=== PATIENT | male | born 1945 | race Caucasian/White ===

== ENCOUNTER 2017-02-23 08:18 | Outpatient (CLI) | payer MEDICARE ==
[2017-02-23] MEDS ORDERED: NACL ONE (09:23)
--- NOTE | 2017-02-23 10:17 | Cat Scan Report ---
CTA CHEST: History: Dilated aortic root, aortic aneurysm. Technique: Helical CT following IV contrast. Sagittal and coronal reformatted images. Rotational MIP images. Findings: Contrast bolus is satisfactory. There is no evidence for aortic dissection. The central pulmonary arteries are unremarkable. No pulmonary embolus is detected. The ascending aorta measures 4.25 cm in the maximum diameter. This was obtained on coronal image 71. The aortic arch measures 3.3 cm. The descending thoracic aorta measures 3.2 cm. There is mild cardiomegaly. No pericardial effusion. The pulmonary vascularity is within normal limits. There are mild hypoventilatory changes in the lower lobes, otherwise, the lungs are clear. No interstitial or airspace disease. No pleural effusion or pneumothorax. The thyroid gland, tracheobronchial tree, esophagus and remaining mediastinal structures are unremarkable. No thoracic mass or adenopathy. Impression: The ascending aorta is dilated up to 4.25 cm as outlined above. Mild cardiomegaly.
== END 2017-02-23 08:19 | disposition home or self-care (01) ==
LOC: CT 08:18
PROVIDERS: ATTEND Internal Medicine
DX: I51.7 Cardiomegaly (principal); I77.810 Thoracic aortic ectasia
CPT/HCPCS: 36415; 71275; 82565; Q9967

== ENCOUNTER 2018-03-16 08:17 | Outpatient (CLI) | payer MEDICARE ==
[2018-03-16 08:54] LABS: Blood Urea Nitrogen 16 mg/dL (9-20)
--- NOTE | 2018-03-16 10:21 | Cat Scan Report ---
CTA chest: Dilated aortic root followup. Following IV administration of contrast transverse images were obtained through the chest. Coronal and sagittal reformatted images are included. Comparison made to prior exam on February 23, 2017. Slightly heterogeneous thyroid lobes. No definable mass. No significant hilar or mediastinal adenopathy. Central airways appear patent. No pulmonary nodules or infiltrates. Pleural surfaces are smooth. There is good opacification of the pulmonary vessels, cardiac chambers, and thoracic aorta. No filling defects in the pulmonary vessels nor cardiac chambers. The ascending aorta as measured on coronal images 71 and 72. The current measurement is 4.29 cm. This is comparable to the patient's prior examination. The aortic arch and descending aorta appear stable and within normal range. Impressions: Stable appearing mild ascending aortic dilatation.
== END 2018-03-16 08:18 | disposition home or self-care (01) ==
LOC: CT 08:17
PROVIDERS: ATTEND Internal Medicine
DX: I77.810 Thoracic aortic ectasia (principal); Z91.81 History of falling
CPT/HCPCS: 36415; 71275; 82565; 84520; Q9967

== ENCOUNTER 2019-04-30 08:18 | Outpatient (CLI) | payer MEDICARE ==
[2019-04-30 10:21] LABS: Chol/HDL Ratio 2.37 %
[2019-05-02 12:34] LABS: Vitamin D, 25-OH, D2 <4 ng/mL
== END 2019-04-30 08:19 | disposition home or self-care (01) ==
LOC: LAB 08:18
PROVIDERS: ATTEND Internal Medicine
DX: Z13.21 Encounter for screening for nutritional disorder (principal); E78.5 Hyperlipidemia, unspecified; E11.9 Type 2 diabetes mellitus without complications; E03.9 Hypothyroidism, unspecified
CPT/HCPCS: 36415; 80061; 82306; 82607; 83036; 84443

== ENCOUNTER 2019-08-05 14:22 | Outpatient (CLI) | payer MEDICARE ==
[2019-08-05 14:39] LABS: Bacteria,Urine 1+ /HPF (Negative); Bilirubin,Urine NEG (Negative); Blood,Urine SM (Negative); Color,Urine Yellow (Yellow); Mucus,Urine FEW /HPF; Protein,Urine <15 mg/dL mg/dL (Negative); Urobilinogen,Urine < 2.0 mg/dL (<2.0)
== END 2019-08-05 14:23 | disposition home or self-care (01) ==
LOC: LAB 14:22
PROVIDERS: ATTEND Internal Medicine
DX: N39.0 Urinary tract infection, site not specified (principal)
CPT/HCPCS: 81001; 87086

== ENCOUNTER 2019-09-16 08:47 | Outpatient (CLI) | payer MEDICARE | END 2019-09-16 08:48 | disposition home or self-care (01) | LOC: LAB 08:47 | PROVIDERS: ATTEND Internal Medicine | DX: E11.9 Type 2 diabetes mellitus without complications (principal); E03.9 Hypothyroidism, unspecified | CPT/HCPCS: 36415; 83036; 84443 ==

== ENCOUNTER 2020-01-06 05:13 | Observation (INO) | payer MEDICARE ==
[2020-01-02 10:46] LABS: Hematocrit 43.5 % (35.5-45.6); Hemoglobin 15.3 gm/dl (11.8-15.2); Mean Corpuscular HGB Conc 35 % (32-34); Mean Corpuscular Volume 91 fl (84-94); Platelet Count 176 K/mm3 (140-440); Red Blood Count 4.78 M/mm3 (3.65-5.03)
--- NOTE | 2020-01-02 11:08 | Anesthesia Consultation ---
Anesthesia Consult and Med Hx Date of service: 01/06/20 - Airway Anesthetic Teeth Evaluation: Dentures (full upper and lower) ROM Head & Neck: Adequate Mental/Hyoid Distance: Adequate Mallampati Class: Class III Intubation Access Assessment: Possibly Difficult - Pulmonary Exam CTA: Yes - Cardiac Exam Cardiac Exam: RRR - Pre-Operative Health Status ASA Pre-Surgery Classification: ASA3 Proposed Anesthetic Plan: General - Pulmonary Hx Smoking: Yes (quit 40yrs ago) Hx Respiratory Symptoms: No Hx Sleep Apnea: Yes (compliant with CPAP) - Cardiovascular System Hx Hypertension: Yes Hx Heart Attack/AMI: No Hx Percutaneous Transluminal Coronary Angioplasty (PTCA): No Hx Valvular Heart Disease: No (no significant valvular lesions on TTE 10/2018) - Central Nervous System Hx Seizures: No 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 Recent diagnosis of Parkinson's disease and mild cognitive impairment. Most recent cardiology note on chart.
[2020-01-02 11:13] LABS: Alanine Aminotransferase 38 units/L (7-56); Albumin 4.4 g/dL (3.9-5); BUN/Creatinine Ratio 22; Blood Urea Nitrogen 20 mg/dL (9-20); Calcium 9.8 mg/dL (8.4-10.2); Hemolysis Index 33
[~2020-01-06 05:13] MED LIST: ceFAZolin/Water 2 GM/20 ML 2 GM/20 ML SYRINGE IV NR
[2020-01-06] MEDS ORDERED: SODIUM CHLORIDE 0.9% 1000 ML 1,000 ML IV SCH ×2 (06:00→10:00)
--- NOTE | 2020-01-06 07:06 | Anesthesia Day of Surgery ---
Anesthesia Day of Surgery - Day of Surgery Patient Examined: Yes Patient H&P Reviewed: Yes (Sugars 300, high limit will monitor post op) Patient is NPO: Yes Beta Blockers: Yes
[2020-01-06] MEDS ORDERED: fentaNYL 100 MCG/2 ML INJ IV PRN (07:18)
[2020-01-06] MEDS ORDERED: PHENYLEPHRINE/NS 1,000 MCG/10 ML SYRINGE (OR USE) IV ONE (07:48)
[2020-01-06] MEDS ORDERED: ONDANSETRON 4 MG/2 ML INJ ONE (07:48)
[2020-01-06] MEDS ORDERED: GLYCOPYRROLATE 0.4 MG/2 ML INJ ONE (07:48)
[2020-01-06] MEDS ORDERED: LIDOCAINE MPF (2%) 20 MG/1 ML VIAL 5 ML ONE (07:48)
[2020-01-06] MEDS ORDERED: propofoL 200 MG/20 ML VIAL IV ONE (07:49)
[2020-01-06] MEDS ORDERED: fentaNYL 100 MCG/2 ML INJ ONE (07:49)
[2020-01-06] MEDS ORDERED: SUCCINYLCHOLINE CHLORIDE 200 MG/10 ML INJ MDV ONE (07:52)
[2020-01-06] MEDS ORDERED: SODIUM CHLORIDE 0.9% IRRIG SOLN 2000 ML IR ONE (08:36)
--- NOTE | 2020-01-06 08:55 | Short Stay Summary ---
Short Stay Documentation Date of service: 01/06/20 Narrative H&P: 74 yr old with BPH NEEDS TURP - History Past Medical History: diabetes, hypertension - Allergies and Medications Current Medications: Allergies No Known Allergies Allergy (Verified 12/30/19 11:57) Home Medications Medication Instructions Recorded Confirmed Last Taken Type Atorvastatin Calcium 20 mg PO HS 10/14/18 12/30/19 10/12/18 22:00 History Furosemide 20 mg PO DAILY 10/14/18 01/02/20 10/13/18 10:00 History Metformin HCl 500 mg PO BID 10/14/18 12/30/19 10/13/18 10:00 History Metoprolol [Lopressor TAB] 25 mg PO BID 10/14/18 12/30/19 10/13/18 10:00 History 25 mg Tamsulosin [Flomax] 0.8 mg PO DAILY 10/14/18 12/30/19 10/13/18 10:00 History Aspirin [Adult Aspirin] 81 mg PO DAILY 12/30/19 12/30/19 Unknown History Carbidopa/Levodopa [Carbidopa-Levo 1 each PO TID 12/30/19 12/30/19 Unknown History 25-250 mg Odt] Duloxetine HCl [Cymbalta] 60 mg PO QHS 12/30/19 01/02/20 Unknown History Finasteride [Proscar] 5 mg PO DAILY 12/30/19 12/30/19 Unknown History hydroCHLOROthiazide [HCTZ] 25 mg PO QDAY 12/30/19 12/30/19 Unknown History Active Medications Fentanyl (Sublimaze) 50 mcg IV Q5MIN PRN PRN Reason: Pain , Severe (7-10) Stop: 01/06/20 23:00 Cefazolin Sodium (Ancef/Sterile Water 2 Gm/20 Ml) 2 gm in 20 mls @ 80 mls/hr IV PREOP NR; Protocol Stop: 01/06/20 18:00 Sodium Chloride (Nacl 0.9% 1000 Ml) 1,000 mls @ 42 mls/hr IV DIRECT CHETAN Stop: 01/06/20 23:59 - Physical exam General appearance: no acute distress, well-nourished Integumentary: no rash, no growths HEENT: Atraumatic, PERRLA Lungs: Clear to auscultation, Normal air movement Heart: Regular rate, No murmurs Gastrointestinal: normal Male Genitourinary: normal Rectal Exam: normal rectal tone - Brief post op/procedure progress note Date of procedure: 01/06/20 Pre-op diagnosis: BPH Post-op diagnosis: same Procedure: cysto, rpg, TURP Anesthesia: GETA Surgeon: TAWNYA CRANE Estimated blood loss: minimal Pathology: list (prostate chips) Specimen disposition: to lab Condition: stable - Hospital course Hospital course: bactrim,ultram, norco on chart no issues, mild nausea byers pink tinged ok for dc home - Disposition Condition at discharge: Stable Short Stay Discharge Plan Follow up with: SHUN PÉREZ MD [Primary Care Provider] - 7 Days
[2020-01-06] MEDS ORDERED: NALOXONE 0.4 MG/1 ML INJ IV PRN (09:02)
--- NOTE | 2020-01-06 09:18 | Fluoroscopy Report ---
INTRAOPERATIVE FLUOROSCOPY: RETROGRADE UROGRAPHY INDICATION: Enlarged prostate gland. Guidance for retrograde urography performed with TURP. TECHNIQUE: Intraoperative spot images were obtained during the procedure. FINDINGS: There is unremarkable opacification of the renal collecting systems and ureters. Please see the opera tive report for further details. Fluoroscopy Time: 11 seconds. Fluoroscopy Images: 3. Signer Name: Stevie Josue MD Signed: 01/06/2020 9:13 AM Workstation Name: [id number]
[2020-01-06] MEDS ORDERED: DEXTROSE 50% IN WATER (25GM) 50 ML SYRINGE IV PRN ×3 (09:29→11:37)
--- NOTE | 2020-01-06 09:39 | Post Anesthesia Evaluation ---
- Post Anesthesia Evaluation Patient Participated: Yes Airway Patent: Yes Stable Respiratory Function: Yes Nausea/Vomiting: Yes Temp > 96.8F: Yes Pain Manageable: Yes Adequeate Hydration: Yes Anesthesia Complications: No
[2020-01-06] MEDS ORDERED: ONDANSETRON 4 MG/2 ML INJ IV PRN (10:00)
[2020-01-06] MEDS ORDERED: MORPHINE 2 MG/1 ML INJ IV PRN (10:00)
[2020-01-06] MEDS ORDERED: SODIUM CHLORIDE 0.9% 1000 ML 1,000 ML ONE (10:07)
--- NOTE | 2020-01-06 11:34 | Consultation ---
History of Present Illness - Reason for Consult Consult date: 01/06/20 Requesting physician: TAWNYA CRANE - History of Present Illness 74-year-old male with past medical history of diabetes mellitus type 2, hypertension and BPH who presents for elective surgery this morning--TURP. Patient seen in PACU/recovery and appears to be somewhat somnolent. Patient with no history of chest pain or shortness of breath. No headache or visual disturbances. Past History Past Medical History: diabetes, hypertension, hyperlipidemia, other (BPH) Past Surgical History: No surgical history Social history: no significant social history Family history: no significant family history Medications and Allergies Allergies Allergy/AdvReac Type Severity Reaction Status Date / Time No Known Allergies Allergy Verified 12/30/19 11:57 Home Medications Medication Instructions Recorded Confirmed Last Taken Type Atorvastatin Calcium 20 mg PO HS 10/14/18 01/06/20 01/05/20 19:00 History Furosemide 20 mg PO DAILY 10/14/18 01/06/20 01/05/20 09:00 History Metformin HCl 500 mg PO BID 10/14/18 01/06/20 01/05/20 17:00 History Metoprolol [Lopressor TAB] 25 mg PO BID 10/14/18 01/06/20 01/05/20 19:00 History Tamsulosin [Flomax] 0.8 mg PO DAILY 10/14/18 01/06/20 01/05/20 09:00 History Aspirin [Adult Aspirin] 81 mg PO DAILY 12/30/19 01/06/20 12/30/19 09:00 History Carbidopa/Levodopa [Carbidopa-Levo 1 each PO TID 12/30/19 01/06/20 01/05/20 19:00 History 25-250 mg Odt] Duloxetine HCl [Cymbalta] 60 mg PO QHS 12/30/19 01/06/20 01/05/20 19:00 History Finasteride [Proscar] 5 mg PO DAILY 12/30/19 01/06/20 01/05/20 09:00 History hydroCHLOROthiazide [HCTZ] 25 mg PO QDAY 12/30/19 01/06/20 01/05/20 09:00 History Active Meds: Active Medications Acetaminophen/Hydrocodone Bitart ([place] 5/325) 2 each PO Q4H PRN PRN Reason: Pain, Moderate (4-6) Atorvastatin Calcium (Lipitor) 20 mg PO QHS [facility] Carbidopa/Levodopa (Sinemet) 1 each PO TID [facility] Dextrose (D50w (25gm) Syringe) 50 ml IV Q30MIN PRN; Protocol PRN Reason: Hypoglycemia Duloxetine HCl (Cymbalta) 60 mg PO QHS [facility] Fentanyl (Sublimaze) 50 mcg IV Q5MIN PRN PRN Reason: Pain , Severe (7-10) Stop: 01/06/20 23:00 Finasteride (Proscar) 5 mg PO DAILY [facility] Hydrochlorothiazide (Hctz) 25 mg PO QDAY CHETAN Cefazolin Sodium (Ancef/Sterile Water 2 Gm/20 Ml) 2 gm in 20 mls @ 80 mls/hr IV PREOP NR; Protocol Stop: 01/06/20 18:00 Cefazolin Sodium (Ancef/Ns 1 Gm/50 Ml) 1 gm in 50 mls @ 100 mls/hr IV Q8H CHETAN; Protocol Stop: 01/07/20 00:29 Sodium Chloride (Nacl 0.9% 1000 Ml) 1,000 mls @ 100 mls/hr IV DIRECT CHETAN Insulin Human Regular (Humulin R) 0 units SUB-Q Q6HR [facility]; Protocol Metformin HCl (Glucophage) 500 mg PO BIDDIAB [facility] Metoprolol Tartrate (Metoprolol) 25 mg PO BID CHETAN Morphine Sulfate (Morphine) 2 mg IV Q4H PRN PRN Reason: Pain, Moderate (4-6) Naloxone HCl (Naloxone) 0.1 mg IV Q2MIN PRN PRN Reason: Res Rate </= 8 or 02 SAT < 92% Ondansetron HCl (Zofran) 4 mg IV Q8H PRN PRN Reason: Nausea And Vomiting Sodium Chloride (Nacl 0.9%) 2,000 ml IR DIRECT CHETAN Tamsulosin HCl (Flomax) 0.8 mg PO DAILY [facility] Review of Systems All systems: negative Exam - Constitutional Vitals: Temp Pulse Resp BP Pulse Ox 98.3 F 74 18 127/71 96 01/06/20 10:00 01/06/20 10:30 01/06/20 10:30 01/06/20 10:30 01/06/20 10:30 General appearance: Present: no acute distress, well-nourished - EENT Eyes: Present: PERRL ENT: hearing intact, clear oral mucosa - Neck Neck: Present: supple, normal ROM - Respiratory Respiratory effort: normal Respiratory: bilateral: CTA - Cardiovascular Heart Sounds: Present: S1 & S2. Absent: rub, click - Extremities Extremities: pulses symmetrical, No edema Peripheral Pulses: within normal limits - Abdominal General gastrointestinal: Present: soft, non-tender, non-distended, normal bowel sounds Male genitourinary: Present: normal - Integumentary Integumentary: Present: clear, warm, dry - Musculoskeletal Musculoskeletal: gait normal, strength equal bilaterally - Psychiatric Psychiatric: appropriate mood/affect, intact judgment & insight - Neurologic Neurologic: CNII-XII intact, moves all extremities Results - Labs CBC & Chem 7: 01/02/20 09:55 01/02/20 09:55 Labs: Abnormal lab results 01/06/20 01/06/20 Range/Units 07:00 09:29 POC Glucose 300 H 271 H (70-105) Assessment and Plan Diabetes mellitus type 2. Accu-Cheks and sliding scale insulin. Hypertension. Resume home antihypertensive medications. Hyperlipidemia. Continue antilipids BPH. s/p TURP. Continue per urology.
--- NOTE | 2020-01-06 11:34 | Operative Report ---
PREOPERATIVE DIAGNOSIS: Benign prostatic hypertrophy. POSTOPERATIVE DIAGNOSIS: Benign prostatic hypertrophy. PROCEDURE: Cystoscopy, bilateral retrograde pyelograms, transurethral resection of the prostate. SURGEON: Flakito Tomlin MD ANESTHESIA: General. ESTIMATED BLOOD LOSS: Minimal. FLUIDS: Crystalloid. COMPLICATIONS: No complications. INDICATIONS: This patient is a 74-year-old gentleman known to our service for several years with worsening prostate obstructive symptoms. Discussed options. He agreed to proceed with surgical intervention. DESCRIPTION OF PROCEDURE: The patient was taken to the operative suite, placed in a supine position. After adequate general anesthesia, he was placed in a dorsal lithotomy position, prepped and draped in a sterile fashion. Pancystourethroscopy was performed with a 22-Finnish Storz cystoscope, no urethral abnormalities. His prostate displayed moderate trilobar obstruction. In his bladder no tumors or stones were noted. Positive diffuse edema. Bilateral retrograde pyelograms were obtained with an 8-Finnish Barber catheter and 8 mL of contrast. No filling defects or obstruction. No filling defects or obstruction. Next, using a 24-Finnish resectoscope and loop with the cutting and coag on 160 and 60, transurethral resection of the prostate was performed in a systematic fashion, taken down the median lobe and the right and left lateral lobes respectively. Chips were evacuated out with the [employer] evacuator. A 24-Finnish Sinha with a stylette was placed, 50 mL in the balloon, irrigated clear. Rectal exam was benign. He was extubated and taken to recovery room with a Trevino's drip. He will be observed overnight. JOB# [id number] [facility]
[2020-01-06] MEDS ORDERED: INSULIN REGULAR, HUMAN 100 UNITS/1 ML SUB-Q SCH ×2 (12:00)
[2020-01-06] MEDS ORDERED: LEVODOPA PO SCH (14:00)
[2020-01-06] MEDS ORDERED: CARBIDOPA PO SCH (14:00)
[2020-01-06] MEDS: INSULIN REGULAR, HUMAN 100 UNITS/1 ML SUB-Q SCH ×3 (15:01→22:03)
[2020-01-06] MEDS: SODIUM CHLORIDE 0.9% IRRIG SOLN 2000 ML IR SCH ×7 (15:02→21:30)
[2020-01-06] MEDS ORDERED: NITROGLYCERIN 0.4 MG TAB SUBL SL PRN (16:18)
[2020-01-06] MEDS: METOPROLOL TARTRATE 25 MG TAB PO SCH ×2 (16:46→21:29)
[2020-01-06] MEDS: CARBIDOPA/LEVODOPA 25-250 TAB PO SCH ×2 (16:46→22:03)
[2020-01-06] MEDS: hydroCHLOROthiazide 25 MG TAB PO SCH (16:47)
[2020-01-06] MEDS: FINASTERIDE 5 MG TAB PO SCH (16:47)
[2020-01-06] MEDS: metFORMIN 500 MG TAB PO SCH ×2 (17:47→17:51)
[2020-01-06] MEDS: ASPIRIN 81 MG TAB CHEW PO SCH (17:58)
[2020-01-06] MEDS: ceFAZolin/NS 1 GM/50 ML 1 GM/50 ML BAG IV SCH (17:59)
[2020-01-06] MEDS: HYDROcodone/ACETAMINOPHEN 5-325 MG TAB PO PRN (21:30)
[2020-01-06] MEDS ORDERED: ATORVASTATIN CALCIUM 20 MG PO SCH (22:00)
[2020-01-06] MEDS ORDERED: DULoxetine 30 MG CAP PO SCH (22:00)
[2020-01-06] MEDS ORDERED: DULoxetine 20 MG CAP PO SCH (22:00)
[2020-01-06] MEDS: TAMSULOSIN 0.4 MG CAP PO SCH (22:04)
[2020-01-07] MEDS: ceFAZolin/NS 1 GM/50 ML 1 GM/50 ML BAG IV SCH (00:32)
[2020-01-07] MEDS: SODIUM CHLORIDE 0.9% IRRIG SOLN 2000 ML IR SCH ×3 (00:39→05:24)
[2020-01-07] MEDS: HYDROcodone/ACETAMINOPHEN 5-325 MG TAB PO PRN (05:26)
[2020-01-07 05:55] LABS: Basophils % (Auto) 0.4 % (0.0-1.8); Eosinophils # (Auto) 0.2 K/mm3 (0.0-0.4); Eosinophils % (Auto) 2.1 % (0.0-4.3); Hematocrit 41.5 % (35.5-45.6); Hemoglobin 14.1 gm/dl (11.8-15.2); Lymphocytes # (Auto) 2.1 K/mm3 (1.2-5.4); Lymphocytes % (Auto) 20.1 % (13.4-35.0); Mean Corpuscular HGB Conc 34 % (32-34); Mean Corpuscular Volume 92 fl (84-94); Monocytes # (Auto) 1.2 K/mm3 (0.0-0.8); Monocytes % (Auto) 11.7 % (0.0-7.3); Platelet Count 166 K/mm3 (140-440)
[2020-01-07 06:12] LABS: BUN/Creatinine Ratio 15; Blood Urea Nitrogen 15 mg/dL (9-20); Calcium 9.2 mg/dL (8.4-10.2); Hemolysis Index 12
[2020-01-07] MEDS: INSULIN REGULAR, HUMAN 100 UNITS/1 ML SUB-Q SCH ×2 (08:37→12:00)
[2020-01-07] MEDS: metFORMIN 500 MG TAB PO SCH (08:38)
[2020-01-07] MEDS: CARBIDOPA/LEVODOPA 25-250 TAB PO SCH (08:38)
[2020-01-07] MEDS ORDERED: POTASSIUM CHLORIDE ER 20 MEQ TAB PO SCH (09:00)
--- NOTE | 2020-01-07 09:36 | Consultation ---
<MADELAINE FARFAN - Last Filed: 01/07/20 10:01> History of Present Illness Consult date: 01/07/20 Requesting physician: SINAI YOUNG Consult reason: chest pain History of present illness: The pt is a 74-year-old male with past medical history of diabetes mellitus type 2, hypertension, HLP, SARAH, obesity and BPH. He is followed in our office by Dr. Leeroy Chadwick. He presented presented yesterday for elective TURP. He underwent the procedure and was admitted. Cardiology has been consulted for chest pain. Pt denies any occurrence of chest pain. He is noted to be nauseous and is vomiting on evaluation. He denies any SOB, palpitations, diaphoresis, dizziness or syncope. Lexiscan MPI stress test done 05/2019 was negative. Echo done 10/2018 showed EF 55-60%, mild LVH, impaired relaxation, mild dilatation of ascending aorta and descending thoracic aorta. Past History Past Medical History: diabetes, hypertension, hyperlipidemia, other (BPH) Past Surgical History: No surgical history Social history: no significant social history Family history: no significant family history Medications and Allergies Allergies Allergy/AdvReac Type Severity Reaction Status Date / Time No Known Allergies Allergy Verified 12/30/19 11:57 Home Medications Medication Instructions Recorded Confirmed Last Taken Type Atorvastatin Calcium 20 mg PO HS 10/14/18 01/06/20 01/05/20 19:00 History Furosemide 20 mg PO DAILY 10/14/18 01/06/20 01/05/20 09:00 History Metformin HCl 500 mg PO BID 10/14/18 01/06/20 01/05/20 17:00 History Metoprolol [Lopressor TAB] 25 mg PO BID 10/14/18 01/06/20 01/05/20 19:00 History Tamsulosin [Flomax] 0.8 mg PO DAILY 10/14/18 01/06/20 01/05/20 09:00 History Aspirin [Adult Aspirin] 81 mg PO DAILY 12/30/19 01/06/20 12/30/19 09:00 History Carbidopa/Levodopa [Carbidopa-Levo 1 each PO TID 12/30/19 01/06/20 01/05/20 19:00 History 25-250 mg Odt] Duloxetine HCl [Cymbalta] 60 mg PO QHS 12/30/19 01/06/20 01/05/20 19:00 History Finasteride [Proscar] 5 mg PO DAILY 12/30/19 01/06/20 01/05/20 09:00 History hydroCHLOROthiazide [HCTZ] 25 mg PO QDAY 12/30/19 01/06/20 01/05/20 09:00 History Active Meds: Active Medications Acetaminophen/Hydrocodone Bitart ([place] 5/325) 2 each PO Q4H PRN PRN Reason: Pain, Moderate (4-6) Last Admin: 01/07/20 05:26 Dose: 2 each Documented by: Aspirin (Baby Aspirin) 81 mg PO QDAY [facility] Last Admin: 01/06/20 17:58 Dose: 81 mg Documented by: Atorvastatin Calcium (Lipitor) 20 mg PO QHS [facility] Last Admin: 01/06/20 21:30 Dose: 20 mg Documented by: Carbidopa/Levodopa (Sinemet) 1 each PO TID [facility] Last Admin: 01/07/20 08:38 Dose: 1 each Documented by: Dextrose (D50w (25gm) Syringe) 50 ml IV Q30MIN PRN; Protocol PRN Reason: Hypoglycemia Duloxetine HCl (Cymbalta) 60 mg PO QHS [facility] Last Admin: 01/06/20 21:30 Dose: 60 mg Documented by: Finasteride (Proscar) 5 mg PO DAILY [facility] Last Admin: 01/06/20 16:47 Dose: 5 mg Documented by: Hydrochlorothiazide (Hctz) 25 mg PO QDAY [facility] Last Admin: 01/06/20 16:47 Dose: 25 mg Documented by: Sodium Chloride (Nacl 0.9% 1000 Ml) 1,000 mls @ 100 mls/hr IV DIRECT [facility] Last Admin: 01/07/20 05:26 Dose: 100 mls/hr Documented by: Insulin Human Regular (Humulin R) 0 units SUB-Q ACHS [facility]; Protocol Last Admin: 01/07/20 08:37 Dose: 4 units Documented by: Metformin HCl (Glucophage) 500 mg PO BIDDIAB [facility] Last Admin: 01/07/20 08:38 Dose: 500 mg Documented by: Metoprolol Tartrate (Metoprolol) 25 mg PO BID [facility] Last Admin: 01/06/20 21:29 Dose: 25 mg Documented by: Morphine Sulfate (Morphine) 2 mg IV Q4H PRN PRN Reason: Pain , Severe (7-10) Last Admin: 01/06/20 16:15 Dose: 2 mg Documented by: Naloxone HCl (Naloxone) 0.1 mg IV Q2MIN PRN PRN Reason: Res Rate </= 8 or 02 SAT < 92% Nitroglycerin (Nitrostat) 0.4 mg SL .Q5MIN PRN PRN Reason: Chest Pain Ondansetron HCl (Zofran) 4 mg IV Q8H PRN PRN Reason: Nausea And Vomiting Potassium Chloride (K-Dur) 40 meq PO Q4H [facility] Stop: 01/07/20 13:01 Last Admin: 01/07/20 08:38 Dose: 40 meq Documented by: Sodium Chloride (Nacl 0.9%) 2,000 ml IR DIRECT [facility] Last Admin: 01/07/20 05:24 Dose: 2,000 ml Documented by: Tamsulosin HCl (Flomax) 0.8 mg PO DAILY [facility] Last Admin: 01/06/20 22:04 Dose: Not Given Documented by: Review of Systems Constitutional: no weight loss, no weight gain, no fever, no chills, no sweats Ears, nose, mouth and throat: no ear pain, no nose pain, no sinus pressure, no sinus pain Cardiovascular: no chest pain, no orthopnea, no palpitations, no rapid/irregular heart beat, no edema, no syncope, no lightheadedness, no shortness of breath, no dyspnea on exertion, no leg edema Respiratory: no cough, no shortness of breath, no dyspnea on exertion, no congestion, no wheezing, no pain on inspiration Gastrointestinal: nausea, vomiting, no abdominal pain, no diarrhea, no constipation, no change in bowel habits Genitourinary Male: no flank pain, no discharge Musculoskeletal: no neck stiffness, no neck pain, no shooting arm pain, no arm numbness/tingling, no low back pain, no shooting leg pain Integumentary: no rash, no pruritis, no redness, no sores, no wounds Neurological: no head injury, no paralysis, no weakness, no parathesias, no numbness, no tingling, no seizures, no syncope Psychiatric: no anxiety Endocrine: no cold intolerance, no heat intolerance Hematologic/Lymphatic: no easy bruising, no easy bleeding Allergic/Immunologic: no urticaria Physical Examination Vital Signs Temp Pulse Resp BP Pulse Ox 97.1 F L 80 20 109/76 97 01/02/20 10:44 01/02/20 10:44 01/02/20 10:44 01/02/20 10:44 01/02/20 10:44 General appearance: no acute distress HEENT: Positive: PERRL, Normocephaly, Mucus Membranes Moist Neck: Positive: neck supple, trachea midline Cardiac: Positive: Reg Rate and Rhythm, S1/S2 Lungs: Positive: Decreased Breath Sounds Neuro: Positive: Grossly Intact Abdomen: Negative: Tender Skin: Negative: Rash Musculoskeletal: No Pain Extremities: Absent: edema Results 01/07/20 04:42 01/07/20 04:42 CBC 01/07/20 Range/Units 04:42 WBC 10.3 (4.5-11.0) K/mm3 RBC 4.50 (3.65-5.03) M/mm3 Hgb 14.1 (11.8-15.2) gm/dl Hct 41.5 (35.5-45.6) % Plt Count 166 (140-440) K/mm3 Lymph # 2.1 (1.2-5.4) K/mm3 [place] # 1.2 H (0.0-0.8) K/mm3 Eos # 0.2 (0.0-0.4) K/mm3 Baso # 0.0 (0.0-0.1) K/mm3 Comprehensive Metabolic Panel 01/07/20 Range/Units 04:42 Sodium 137 (137-145) mmol/L Potassium 3.1 L (3.6-5.0) mmol/L Chloride 96.5 L (98-107) mmol/L Carbon Dioxide 27 (22-30) mmol/L BUN 15 (9-20) mg/dL Creatinine 1.0 (0.8-1.5) mg/dL Glucose 267 H (75-100) mg/dL Calcium 9.2 (8.4-10.2) mg/dL - Imaging and Cardiology Echo: report reviewed (10/2018 showed EF 55-60%, mild LVH, impaired relaxation, mild dilatation of ascending aorta and descending thoracic aorta. ) EKG: report reviewed, image reviewed EKG interpretations - Telemetry EKG Rhythm: Sinus Rhythm - EKG Sinus rhythms and dysrhythmias: sinus rhythm AV and intraventricular conduction: intraventricular conducti Assessment and Plan Pt denies any occurrence of chest pain. Lexiscan MPI stress test done 05/2019 was negative. Echo done 10/2018 showed EF 55-60%, mild LVH, impaired relaxation, mild dilatation of ascending aorta and descending thoracic aorta. Gian negative for AMI x 1 set. Obtain second set of Gian and if negative, pt may discharge from cardiology standpoint. Further eval of n/v per primary team. Replete K+. Recommend pt follow up in our office with Dr. Leeroy Chadwick within 2 weeks of discharge ([phone]). The patient has been seen in conjunction with Dr. Wilson who agrees with the assessment and plan of care. - Patient Problems (1) S/P TURP Current Visit: Yes Status: Acute (2) Nausea and vomiting Current Visit: Yes Status: Acute (3) Hypokalemia Current Visit: Yes Status: Acute (4) HTN (hypertension) Current Visit: Yes Status: Chronic (5) Diabetes Current Visit: Yes Status: Chronic (6) Hyperlipidemia Current Visit: Yes Status: Chronic (7) Sleep apnea Current Visit: Yes Status: Chronic (8) Obesity Current Visit: Yes Status: Chronic <ANCELMO WILSON R - Last Filed: 01/07/20 11:30> Medications and Allergies Active Meds: Active Medications Acetaminophen/Hydrocodone Bitart ([place] 5/325) 2 each PO Q4H PRN PRN Reason: Pain, Moderate (4-6) Last Admin: 01/07/20 05:26 Dose: 2 each Documented by: Aspirin (Baby Aspirin) 81 mg PO QDAY [facility] Last Admin: 01/07/20 10:10 Dose: 81 mg Documented by: Atorvastatin Calcium (Lipitor) 20 mg PO QHS [facility] Last Admin: 01/06/20 21:30 Dose: 20 mg Documented by: Carbidopa/Levodopa (Sinemet) 1 each PO TID [facility] Last Admin: 01/07/20 08:38 Dose: 1 each Documented by: Dextrose (D50w (25gm) Syringe) 50 ml IV Q30MIN PRN; Protocol PRN Reason: Hypoglycemia Duloxetine HCl (Cymbalta) 60 mg PO QHS [facility] Last Admin: 01/06/20 21:30 Dose: 60 mg Documented by: Finasteride (Proscar) 5 mg PO DAILY [facility] Last Admin: 01/07/20 10:09 Dose: 5 mg Documented by: Hydrochlorothiazide (Hctz) 25 mg PO QDAY [facility] Last Admin: 01/07/20 10:10 Dose: 25 mg Documented by: Sodium Chloride (Nacl 0.9% 1000 Ml) 1,000 mls @ 100 mls/hr IV DIRECT [facility] Last Admin: 01/07/20 05:26 Dose: 100 mls/hr Documented by: Insulin Human Regular (Humulin R) 0 units SUB-Q ACHS [facility]; Protocol Last Admin: 01/07/20 08:37 Dose: 4 units Documented by: Metformin HCl (Glucophage) 500 mg PO BIDDIAB [facility] Last Admin: 01/07/20 08:38 Dose: 500 mg Documented by: Metoprolol Tartrate (Metoprolol) 25 mg PO BID [facility] Last Admin: 01/07/20 10:10 Dose: 25 mg Documented by: Morphine Sulfate (Morphine) 2 mg IV Q4H PRN PRN Reason: Pain , Severe (7-10) Last Admin: 01/06/20 16:15 Dose: 2 mg Documented by: Naloxone HCl (Naloxone) 0.1 mg IV Q2MIN PRN PRN Reason: Res Rate </= 8 or 02 SAT < 92% Nitroglycerin (Nitrostat) 0.4 mg SL .Q5MIN PRN PRN Reason: Chest Pain Ondansetron HCl (Zofran) 4 mg IV Q8H PRN PRN Reason: Nausea And Vomiting Potassium Chloride (K-Dur) 40 meq PO Q4H [facility] Stop: 01/07/20 13:01 Last Admin: 01/07/20 08:38 Dose: 40 meq Documented by: Sodium Chloride (Nacl 0.9%) 2,000 ml IR DIRECT [facility] Last Admin: 01/07/20 05:24 Dose: 2,000 ml Documented by: Tamsulosin HCl (Flomax) 0.8 mg PO DAILY [facility] Last Admin: 01/07/20 10:10 Dose: 0.8 mg Documented by: Physical Examination Vital Signs Temp Pulse Resp BP Pulse Ox 97.1 F L 80 20 109/76 97 01/02/20 10:44 01/02/20 10:44 01/02/20 10:44 01/02/20 10:44 01/02/20 10:44 Results 01/07/20 04:42 01/07/20 04:42 CBC 01/07/20 Range/Units 04:42 WBC 10.3 (4.5-11.0) K/mm3 RBC 4.50 (3.65-5.03) M/mm3 Hgb 14.1 (11.8-15.2) gm/dl Hct 41.5 (35.5-45.6) % Plt Count 166 (140-440) K/mm3 Lymph # 2.1 (1.2-5.4) K/mm3 [place] # 1.2 H (0.0-0.8) K/mm3 Eos # 0.2 (0.0-0.4) K/mm3 Baso # 0.0 (0.0-0.1) K/mm3 Comprehensive Metabolic Panel 01/07/20 Range/Units 04:42 Sodium 137 (137-145) mmol/L Potassium 3.1 L (3.6-5.0) mmol/L Chloride 96.5 L (98-107) mmol/L Carbon Dioxide 27 (22-30) mmol/L BUN 15 (9-20) mg/dL Creatinine 1.0 (0.8-1.5) mg/dL Glucose 267 H (75-100) mg/dL Calcium 9.2 (8.4-10.2) mg/dL Assessment and Plan chest pain secondary to nausea and vomiting, gi. treatment as per primary team
[2020-01-07] MEDS: FINASTERIDE 5 MG TAB PO SCH (10:09)
[2020-01-07] MEDS: hydroCHLOROthiazide 25 MG TAB PO SCH (10:10)
[2020-01-07] MEDS: ASPIRIN 81 MG TAB CHEW PO SCH (10:10)
[2020-01-07] MEDS: METOPROLOL TARTRATE 25 MG TAB PO SCH (10:10)
[2020-01-07] MEDS: TAMSULOSIN 0.4 MG CAP PO SCH (10:10)
--- NOTE | 2020-01-07 11:15 | Progress Note ---
Assessment and Plan Assessment and plan: Diabetes mellitus type 2. Accu-Cheks and sliding scale insulin. Hypertension. Resume home antihypertensive medications. Hyperlipidemia. Continue antilipids BPH. s/p TURP. Continue per urology. 01/07/20 Patient with BPH, diabetes, hypertension. He had TURP done yesterday by Dr. Tomlin, Urology. Currently only mild pain from surgical site. History Interval history: Patient s/p TURP Mild pain from surgical site Hospitalist Physical - Physical exam Narrative exam: GEN: Not in acute distress, obese, lying in bed,obese HEENT: Normocephalic, atraumatic, Neck: supple, No JVD Lungs: Clear to auscultation bilaterally, heart;S1 and S2 reg, no murmurs, rubs or gallop Abd:soft, non tender, non distended, normal bowel sounds, Ext: No edema, no clubbing, no cyanosis, Neuro: Awake,alert,oriented X3 , no focal signs, Pscych. Calm. appropriate - Constitutional Vitals: Temp Pulse Resp BP Pulse Ox 98.6 F 52 L 20 136/77 97 01/07/20 07:04 01/07/20 10:10 01/07/20 09:00 01/07/20 10:10 01/07/20 07:04 General appearance: Present: no acute distress Results - Labs CBC & Chem 7: 01/07/20 04:42 01/07/20 04:42 Labs: Laboratory Last Values WBC 10.3 K/mm3 (4.5-11.0) 01/07/20 04:42 RBC 4.50 M/mm3 (3.65-5.03) 01/07/20 04:42 Hgb 14.1 gm/dl (11.8-15.2) 01/07/20 04:42 Hct 41.5 % (35.5-45.6) 01/07/20 04:42 MCV 92 fl (84-94) 01/07/20 04:42 MCH 31 pg (28-32) 01/07/20 04:42 MCHC 34 % (32-34) 01/07/20 04:42 RDW 13.0 % (13.2-15.2) L 01/07/20 04:42 Plt Count 166 K/mm3 (140-440) 01/07/20 04:42 Lymph % (Auto) 20.1 % (13.4-35.0) 01/07/20 04:42 [place] % (Auto) 11.7 % (0.0-7.3) H 01/07/20 04:42 Eos % (Auto) 2.1 % (0.0-4.3) 01/07/20 04:42 Baso % (Auto) 0.4 % (0.0-1.8) 01/07/20 04:42 Lymph # 2.1 K/mm3 (1.2-5.4) 01/07/20 04:42 [place] # 1.2 K/mm3 (0.0-0.8) H 01/07/20 04:42 Eos # 0.2 K/mm3 (0.0-0.4) 01/07/20 04:42 Baso # 0.0 K/mm3 (0.0-0.1) 01/07/20 04:42 Seg Neutrophils % 65.7 % (40.0-70.0) 01/07/20 04:42 Seg Neutrophils # 6.7 K/mm3 (1.8-7.7) 01/07/20 04:42 Sodium 137 mmol/L (137-145) 01/07/20 04:42 Potassium 3.1 mmol/L (3.6-5.0) L 01/07/20 04:42 Chloride 96.5 mmol/L (98-107) L 01/07/20 04:42 Carbon Dioxide 27 mmol/L (22-30) 01/07/20 04:42 Anion Gap 17 mmol/L 01/07/20 04:42 BUN 15 mg/dL (9-20) 01/07/20 04:42 Creatinine 1.0 mg/dL (0.8-1.5) 01/07/20 04:42 Estimated GFR > 60 ml/min 01/07/20 04:42 BUN/Creatinine Ratio 15 % 01/07/20 04:42 Glucose 267 mg/dL (75-100) H 01/07/20 04:42 POC Glucose 254 (70-105) H 01/07/20 07:19 Calcium 9.2 mg/dL (8.4-10.2) 01/07/20 04:42 Phosphorus 3.10 mg/dL (2.5-4.5) 01/06/20 16:29 Magnesium 2.00 mg/dL (1.7-2.3) 01/06/20 16:29 Total Bilirubin 2.30 mg/dL (0.1-1.2) H 01/02/20 09:55 AST 55 units/L (5-40) H 01/02/20 09:55 ALT 38 units/L (7-56) 01/02/20 09:55 Alkaline Phosphatase 76 units/L (35-129) 01/02/20 09:55 Troponin T < 0.010 ng/mL (0.00-0.029) 01/06/20 16:29 Total Protein 7.4 g/dL (6.3-8.2) 01/02/20 09:55 Albumin 4.4 g/dL (3.9-5) 01/02/20 09:55 Albumin/Globulin Ratio 1.5 % 01/02/20 09:55 Blood Type B POSITIVE 01/06/20 06:35 Antibody Screen Negative 01/06/20 06:35 Sinha/IV: Voiding Method Indwelling Catheter IV Catheter Type [Right Hand] Peripheral IV Active Medications - Current Medications Current Medications: Generic Name Dose Route Start Last Admin Trade Name Freq PRN Reason Stop Dose Admin Acetaminophen/Hydrocodone Bitart 2 each 01/06/20 09:02 01/07/20 05:26 [place] 5/325 PO 2 each Q4H PRN Administration Pain, Moderate (4-6) Aspirin 81 mg 01/06/20 17:00 01/07/20 10:10 Baby Aspirin PO 81 mg QDAY [facility] Administration Atorvastatin Calcium 20 mg 01/06/20 22:00 01/06/20 21:30 Lipitor PO 20 mg QHS [facility] Administration Carbidopa/Levodopa 1 each 01/06/20 14:00 01/07/20 08:38 Sinemet PO 1 each TID [facility] Administration Dextrose 50 ml 01/06/20 11:37 D50w (25gm) Syringe IV Q30MIN PRN Hypoglycemia Protocol Duloxetine HCl 60 mg 01/06/20 22:00 01/06/20 21:30 Cymbalta PO 60 mg QHS [facility] Administration Finasteride 5 mg 01/06/20 10:00 01/07/20 10:09 Proscar PO 5 mg DAILY [facility] Administration Hydrochlorothiazide 25 mg 01/06/20 10:00 01/07/20 10:10 Hctz PO 25 mg QDAY [facility] Administration Sodium Chloride 1,000 mls @ 100 mls/hr 01/06/20 10:00 01/07/20 05:26 Nacl 0.9% 1000 Ml IV 100 mls/hr DIRECT [facility] Administration Insulin Human Regular 0 units 01/06/20 12:00 01/07/20 08:37 Humulin R SUB-Q 4 units ACHS [facility] Administration Protocol Metformin HCl 500 mg 01/06/20 10:30 01/07/20 08:38 Glucophage PO 500 mg BIDDIAB [facility] Administration Metoprolol Tartrate 25 mg 01/06/20 10:00 01/07/20 10:10 Metoprolol PO 25 mg BID [facility] Administration Morphine Sulfate 2 mg 01/06/20 10:00 01/06/20 16:15 Morphine IV 2 mg Q4H PRN Administration Pain , Severe (7-10) Naloxone HCl 0.1 mg 01/06/20 09:02 Naloxone IV Q2MIN PRN Res Rate </= 8 or 02 SAT < 92% Nitroglycerin 0.4 mg 01/06/20 16:18 Nitrostat SL .Q5MIN PRN Chest Pain Ondansetron HCl 4 mg 01/06/20 10:00 Zofran IV Q8H PRN Nausea And Vomiting Potassium Chloride 40 meq 01/07/20 09:00 01/07/20 08:38 K-Dur PO 01/07/20 13:01 40 meq Q4H [facility] Administration Sodium Chloride 2,000 ml 01/06/20 10:00 01/07/20 05:24 Nacl 0.9% IR 2,000 ml DIRECT [facility] Administration Tamsulosin HCl 0.8 mg 01/06/20 10:00 01/07/20 10:10 Flomax PO 0.8 mg DAILY [facility] Administration
[2020-01-07 11:58] VITALS: BP 150/89
== END 2020-01-07 13:00 | disposition home or self-care (01) ==
LOC: OR 05:13 → 4A 09:02
PROVIDERS: ADMIT Urology; ATTEND Urology
DX: N40.0 Benign prostatic hyperplasia without lower urinary tract symptoms (principal); R11.2 Nausea with vomiting, unspecified; R07.89 Other chest pain; E87.6 Hypokalemia; I10 Essential (primary) hypertension; E11.9 Type 2 diabetes mellitus without complications; E78.5 Hyperlipidemia, unspecified; G47.30 Sleep apnea, unspecified; E66.9 Obesity, unspecified; Z79.82 Long term (current) use of aspirin; Z79.84 Long term (current) use of oral hypoglycemic drugs; Z79.899 Other long term (current) drug therapy; Z68.34 Body mass index [BMI] 34.0-34.9, adult
CPT/HCPCS: 36415; 52005; 52630; 74420; 80048; 80053; 82962; 83735; 84100; 84484; 85025; 85027; 86850; 86900; 86901; 88305; 93005; 96361; 96365; 96366; 96375; A4217; A9270; G0378; J0330; J0690; J2270; J2370; J2405; J2704; J3010; J7030; Q9967; J1815

== ENCOUNTER 2020-06-10 10:17 | Outpatient (CLI) | payer MEDICARE ==
--- NOTE | 2020-06-10 11:34 | XRay Report ---
LUMBAR SPINE 3 VIEWS INDICATION / CLINICAL INFORMATION: LOW BACK PAIN. COMPARISON: None available. FINDINGS: Mild diffuse degenerative change throughout the lumbar region. No other significant skeletal abnormal ity. Alignment is normal. Signer Name: Raymon Ochoa MD FACR Signed: 06/10/2020 11:29 AM Workstation Name: [id number]
== END 2020-06-10 10:18 | disposition home or self-care (01) ==
LOC: XRAY 10:17
PROVIDERS: ATTEND Internal Medicine
DX: M47.816 Spondylosis without myelopathy or radiculopathy, lumbar region (principal)
CPT/HCPCS: 72100

== ENCOUNTER 2022-02-17 08:36 | Outpatient (CLI) | payer MEDICARE ==
[2022-02-17 11:39] LABS: Chol/HDL Ratio 2.15 %
== END 2022-02-17 08:37 | disposition home or self-care (01) ==
LOC: LAB 08:36
PROVIDERS: ATTEND Internal Medicine
DX: E11.9 Type 2 diabetes mellitus without complications (principal); E78.5 Hyperlipidemia, unspecified
CPT/HCPCS: 36415; 80061; 83036